=== PATIENT | male | born 1980 | race Caucasian/White ===

== ENCOUNTER 2024-02-11 18:28 | Emergency (ER) | payer SELFPAY ==
[2024-02-11 18:30] VITALS: BP 147/85
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
[2024-02-11 18:43] VITALS: BMI 28.3
[2024-02-11] MEDS: FLEXERIL 10 MG PO (19:00)
[2024-02-11] MEDS: TORADOL 30 MG IM (19:01)
[2024-02-11 20:00] VITALS: BP 162/85
== END 2024-02-11 20:39 | disposition home or self-care (01) ==
LOC: EMR 18:28
PROVIDERS: EMERGENCY PHYSICIAN Student in an Organized Health Care Education/Training Program
DX: S13.4XXA Sprain of ligaments of cervical spine, initial encounter (principal); V89.2XXA Person injured in unspecified motor-vehicle accident, traffic, initial encounter; Y92.410 Unspecified street and highway as the place of occurrence of the external cause
CPT/HCPCS: 99284; 96372; 70450; 72125